=== PATIENT | male | born 1995 | race Caucasian/White ===

== ENCOUNTER 2017-09-13 01:41 | Emergency (ER) | payer BC ==
[~2017-09-13 01:41] MED LIST: CEPH500T7 PO; OXYC-865 PO
--- NOTE | 2017-09-13 01:43 | ER Report ---
History and Physical Time Seen By MD: 01:43 HPI/ROS CHIEF COMPLAINT: emergency [facility] for suicidal ideation HISTORY OF PRESENT ILLNESS: This is a 22 year old male brought to the ER by the [place] [employer] after they found him on the pedestrian [place] [address], wanting to jump off head first. This came to the attention of the police after he was sending messages to his friends and family saying goodbye. He give a history of depression recently and in the past. He has seen several counselors at [facility]. Recently started on Prozac 4 weeks ago, increased to 40mg 2 weeks ago. Not helping. Fleeting thoughts of suicide frequently over the last few weeks, increasing this week, until tonight he decided to end it. He denies previous suicide attempts in the past to me, but friends indicated that he has had previous problems when he was in [place] and parents had to take him back to his home in [place]. He has been drinking tonight. He denies daily drinking, but his friends indicate that it has been daily for the last few weeks. There have been increased stressors based on relationships that his friends tell about, but he denies any recent problems. He denies any drug use. He denies any other recent illnesses, pain or injuries. REVIEW OF SYSTEMS: Constitutional: No fever or chills. Eyes: No vision changes. ENT: No sore throat. No congestion. Cardiovascular: No chest pain. Respiratory: No shortness of breath. Gastrointestinal: No abdominal pain. No nausea or vomiting. No problems with diarrhea or constipation. Genitourinary: No dysuria. No frequency Musculoskeletal: Denies pain. Skin: No rashes. Neurological: No numbness. No weakness. Allergies: Coded Allergies: Sulfa (Sulfonamide Antibiotics) (Verified Allergy, Unknown, RASH, 09/13/17) Home Meds Reported Medications Fluoxetine Hcl (PROZAC) 40 Mg Capsule, 40 MG PO QDAY, CAPSULE 09/13/17 Discontinued Scripts Cephalexin 500 Mg Tab (KEFLEX 500 MG TAB) 500 Mg Tablet, 500 MG PO TID for infection prevention, #20 TAB Prov:HANNAH WRIGHT DO 09/01/16 Oxycodone Hcl/Acetaminophen (PERCOCET 5-325 MG TABLET) 1 Each Tablet, 1 EACH PO Q4-6H Y for PAIN, #15 Prov:HANNAH WRIGHT DO 09/01/16 Reviewed Nurses Notes: Yes Constitutional Vital Sign - Last 24 Hours 09/13/17 09/13/17 01:42 04:06 Temp 97.8 Pulse 85 Resp 18 B/P (MAP) 146/104 138/92 (107) Pulse Ox 92 Physical Exam General Appearance: The patient is alert, has no immediate need for airway protection, and he is intoxicated. Eyes: Pupils equal and round no injection. Reactive to light, extraocular movements are intact. ENT: Normal oral mucosa. Moist mucous membranes. Neck: Neck is supple and non tender. Respiratory: Chest is non tender, lungs are clear to auscultation. Cardiac: regular rate and rhythm Gastrointestinal: Abdomen is soft and non tender, no masses, bowel sounds normal. Musculoskeletal: Extremities have full range of motion. Skin: No rashes DIFFERENTIAL DIAGNOSIS: After history and physical exam differential diagnosis was considered for suicidal ideation, on emergency penitentiary. Medical Decision Making Data Points Result Diagram: 09/13/17 0242 09/13/17 0242 Laboratory Hematology Test 09/13/17 02:00 09/13/17 02:42 Urine Color Yellow Urine Clarity Clear Urine pH 5.0 pH (4.8-9.5) Urine Specific [place] 1.009 Urine Protein Negative mg/dL (NEGATIVE) Urine Glucose (UA) Negative mg/dL (NEGATIVE) Urine Ketones Negative mg/dL (NEGATIVE) Urine Blood Negative (NEGATIVE) Urine Nitrite Negative (NEGATIVE) Urine Bilirubin Negative (NEGATIVE) Urine Urobilinogen Negative mg/dL (0.2-1.9) Urine Leukocyte Esterase Negative (NEGATIVE) Urine RBC None /HPF (0-2/HPF) Urine WBC <1 /HPF (0-5/HPF) Urine Squamous Epithelial Cells Few /LPF (</=FEW) Urine Bacteria Negative /HPF (NONE-FEW) Urine Mucus None /HPF (NONE-FEW) Urine Opiates Screen Negative Urine Barbiturates Screen Negative Ur Tricyclic Antidepressants Screen Negative Urine Phencyclidine Screen Negative Urine Amphetamines Screen Negative Urine Benzodiazepines Screen Negative Urine Cocaine Screen Negative Urine Cannabinoids Screen Negative Red Blood Count 5.05 M/uL (4.00-5.60) Mean Corpuscular Volume 89.6 fL (80.0-96.0) Mean Corpuscular Hemoglobin 31.1 pg (26.0-33.0) Mean Corpuscular Hemoglobin Concent 34.7 g/dL (32.0-36.0) Red Cell Distribution Width 13.3 % (11.5-14.5) Mean Platelet Volume 8.1 fL (7.2-11.1) Neutrophils (%) (Auto) 71.1 % (39.4-72.5) Lymphocytes (%) (Auto) 18.8 % (17.6-49.6) Monocytes (%) (Auto) 7.0 % (4.1-12.4) Eosinophils (%) (Auto) 2.4 % (0.4-6.7) Basophils (%) (Auto) 0.7 % (0.3-1.4) Nucleated RBC Relative Count (auto) 0.0 /100WBC Neutrophils # (Auto) 5.1 K/uL (2.0-7.4) Lymphocytes # (Auto) 1.3 K/uL (1.3-3.6) Monocytes # (Auto) 0.5 K/uL (0.3-1.0) Eosinophils # (Auto) 0.2 K/uL (0.0-0.5) Basophils # (Auto) 0.0 K/uL (0.0-0.1) Nucleated RBC Absolute Count (auto) 0.00 K/uL Sodium Level 143 mmol/L (137-145) Potassium Level 3.7 mmol/L (3.5-5.0) Chloride Level 102 mmol/L (98-107) Carbon Dioxide Level 27 mmol/L (22-30) Blood Urea Nitrogen 13 mg/dl (9-21) Creatinine 0.90 mg/dl (0.66-1.25) Glomerular Filtration Rate Calc > 60.0 Random Glucose 97 mg/dl (75-110) Calcium Level 9.5 mg/dl (8.4-10.2) Magnesium Level 2.1 mg/dl (1.7-2.2) Total Bilirubin 0.3 mg/dl (0.2-1.3) Aspartate Amino Transf (AST/SGOT) 30 U/L (0-35) Alanine Aminotransferase (ALT/SGPT) 37 U/L (0-56) Alkaline Phosphatase 52 U/L (0-126) Total Protein 7.4 gm/dl (6.3-8.2) Albumin 4.5 g/dl (3.5-5.0) Salicylates Level < 10 mg/L Salicylate Last Dose Date unk Acetaminophen Level < 10 ug/ml Serum Alcohol 188 mg/dl Chemistry Test 09/13/17 02:00 09/13/17 02:42 Urine Color Yellow Urine Clarity Clear Urine pH 5.0 pH (4.8-9.5) Urine Specific [place] 1.009 Urine Protein Negative mg/dL (NEGATIVE) Urine Glucose (UA) Negative mg/dL (NEGATIVE) Urine Ketones Negative mg/dL (NEGATIVE) Urine Blood Negative (NEGATIVE) Urine Nitrite Negative (NEGATIVE) Urine Bilirubin Negative (NEGATIVE) Urine Urobilinogen Negative mg/dL (0.2-1.9) Urine Leukocyte Esterase Negative (NEGATIVE) Urine RBC None /HPF (0-2/HPF) Urine WBC <1 /HPF (0-5/HPF) Urine Squamous Epithelial Cells Few /LPF (</=FEW) Urine Bacteria Negative /HPF (NONE-FEW) Urine Mucus None /HPF (NONE-FEW) Urine Opiates Screen Negative Urine Barbiturates Screen Negative Ur Tricyclic Antidepressants Screen Negative Urine Phencyclidine Screen Negative Urine Amphetamines Screen Negative Urine Benzodiazepines Screen Negative Urine Cocaine Screen Negative Urine Cannabinoids Screen Negative White Blood Count 7.1 k/uL (4.5-11.0) Red Blood Count 5.05 M/uL (4.00-5.60) Hemoglobin 15.7 g/dL (14.0-18.0) Hematocrit 45.2 % (42.0-52.0) Mean Corpuscular Volume 89.6 fL (80.0-96.0) Mean Corpuscular Hemoglobin 31.1 pg (26.0-33.0) Mean Corpuscular Hemoglobin Concent 34.7 g/dL (32.0-36.0) Red Cell Distribution Width 13.3 % (11.5-14.5) Platelet Count 216 K/uL (150-450) Mean Platelet Volume 8.1 fL (7.2-11.1) Neutrophils (%) (Auto) 71.1 % (39.4-72.5) Lymphocytes (%) (Auto) 18.8 % (17.6-49.6) Monocytes (%) (Auto) 7.0 % (4.1-12.4) Eosinophils (%) (Auto) 2.4 % (0.4-6.7) Basophils (%) (Auto) 0.7 % (0.3-1.4) Nucleated RBC Relative Count (auto) 0.0 /100WBC Neutrophils # (Auto) 5.1 K/uL (2.0-7.4) Lymphocytes # (Auto) 1.3 K/uL (1.3-3.6) Monocytes # (Auto) 0.5 K/uL (0.3-1.0) Eosinophils # (Auto) 0.2 K/uL (0.0-0.5) Basophils # (Auto) 0.0 K/uL (0.0-0.1) Nucleated RBC Absolute Count (auto) 0.00 K/uL Glomerular Filtration Rate Calc > 60.0 Calcium Level 9.5 mg/dl (8.4-10.2) Magnesium Level 2.1 mg/dl (1.7-2.2) Total Bilirubin 0.3 mg/dl (0.2-1.3) Aspartate Amino Transf (AST/SGOT) 30 U/L (0-35) Alanine Aminotransferase (ALT/SGPT) 37 U/L (0-56) Alkaline Phosphatase 52 U/L (0-126) Total Protein 7.4 gm/dl (6.3-8.2) Albumin 4.5 g/dl (3.5-5.0) Salicylates Level < 10 mg/L Salicylate Last Dose Date unk Acetaminophen Level < 10 ug/ml Serum Alcohol 188 mg/dl Toxicology Test 09/13/17 02:00 09/13/17 02:42 Urine Opiates Screen Negative Urine Barbiturates Screen Negative Ur Tricyclic Antidepressants Screen Negative Urine Phencyclidine Screen Negative Urine Amphetamines Screen Negative Urine Benzodiazepines Screen Negative Urine Cocaine Screen Negative Urine Cannabinoids Screen Negative Salicylates Level < 10 mg/L Salicylate Last Dose Date unk Acetaminophen Level < 10 ug/ml Serum Alcohol 188 mg/dl Urinalysis Test 09/13/17 02:00 Urine Color Yellow Urine Clarity Clear Urine pH 5.0 pH (4.8-9.5) Urine Specific [place] 1.009 Urine Protein Negative mg/dL (NEGATIVE) Urine Glucose (UA) Negative mg/dL (NEGATIVE) Urine Ketones Negative mg/dL (NEGATIVE) Urine Blood Negative (NEGATIVE) Urine Nitrite Negative (NEGATIVE) Urine Bilirubin Negative (NEGATIVE) Urine Urobilinogen Negative mg/dL (0.2-1.9) Urine Leukocyte Esterase Negative (NEGATIVE) Urine RBC None /HPF (0-2/HPF) Urine WBC <1 /HPF (0-5/HPF) Urine Squamous Epithelial Cells Few /LPF (</=FEW) Urine Bacteria Negative /HPF (NONE-FEW) Urine Mucus None /HPF (NONE-FEW) ED Course/Re-evaluation ED Course Labs show an elevated alcohol level of 188, the rest of the labs are negative. Discussed the case with Dr. Borges, accepted to admission to [facility]. Decision to Disposition Date: September 13, 2017 Decision to Disposition Time: 03:53 Depart Departure Latest Vital Signs Vital Signs Date Time Temp Pulse Resp B/P (MAP) Pulse Ox O2 Delivery O2 Flow Rate FiO2 09/13/17 04:06 138/92 (107) 09/13/17 01:42 97.8 85 18 92 Impression: Primary Impression: Suicidal ideation Additional Impressions: Depression Alcohol intoxication Condition: Condition Unchanged Disposition: XFER TO [facility] Problem Qualifiers Additional Impressions: Depression Depression Type: major depressive disorder Major depression recurrence: recurrent Active/Remission status: currently active Major depression episode severity: severe Psychotic features: without psychotic features Qualified Codes: F33.2 - Major depressive disorder, recurrent severe without psychotic features Alcohol intoxication Complication of substance-induced condition: uncomplicated Qualified Codes: F10.920 - Alcohol use, unspecified with intoxication, uncomplicated RUBEN LYNN MD September 13, 2017 01:43
[2017-09-13] MEDS ORDERED: FLUO40CA76 PO (01:56)
--- NOTE | 2017-09-13 02:11 | BHS - Psychiatric Evaluation ---
ER - Title 25 MHE Evaluation Title 25 Evaluation Patient Detained By: Law Enforcement Referral Source: Patient, law enforcement, friends Date Patient Detained: September 13, 2017 Time Patient Detained: :52 Date Jail Expires: September 17, 2017 Time Jail Expires: Legal Status: Police Hold: No Legal Status: Residence: [facility] Resident Assessment Data Provided By: Patient, Law Enforcement HPI/ROS: This is a 22 year old male brought to the ER by the [place] [employer] after they found him on the pedestrian bridge [address], wanting to jump off head first. This came to the attention of the police after he was sending messages to his friends and family saying goodbye. He give a history of depression recently and in the past. He has seen several counselors at [facility]. Recently started on Prozac 4 weeks ago, increased to 40mg 2 weeks ago. Not helping. Fleeting thoughts of suicide frequently over the last few weeks, increasing this week, until tonight he decided to end it. He denies previous suicide attempts in the past to me, but friends indicated that he has had previous problems when he was in [place] and parents had to take him back to his home in [place]. He has been drinking tonight. He denies daily drinking, but his friends indicate that it has been daily for the last few weeks. There have been increased stressors based on relationships that his friends tell about, but he denies any recent problems. He denies any drug use. He denies any other recent illnesses, pain or injuries. Admit due to SI or Attempt: Yes Suicide Plan: Has Plan with Access Current Suicide Plan was going to jump head first off of a bridge. Alcohol or Drugs Involved: Yes Current Intoxication Info: Alcohol use tonight Is Patient Info Reliable: Yes Current Home Psych Meds: Prozac 40mg daily Mental Status Exam General Appearance: Well Groomed, Good Eye Contact, Cooperative, Other ( Sitting in exam bed in handcuffs) Speech: Spontaneous, Normal Rate, Normal Rhythm, Normal Volume, Normal Tone Mood: Dysthmic/Depressed Affect: Calm, Neutral, Anxious Thought Process: Organized, Logical Thought Content: Suicidal Ideation, No Homicidal Ideation Sensorium: Other (intoxicated) Cognition: Alert & Oriented-Person, Alert & Oriented-Place, Alert & Oriented- Time, [id number] Memory: Other (normal) Insight Judgment: Fair Current Risk & History Current Dangerous Risk Assessm: Current Suicide Ideation Past Dangerous Risk Assessm: Suicide Ideation-last 6mo Previous Suicide Attempt: No Previous Attempt Previous Psychiatric Illness: Yes Previous Diagnosis/Treatment: Depression. Sees a psychiatrist at [facility]. Started on Prozac about 4 weeks ago. Previous Psychiatric Treatment: Yes Risk Assessment & Disposition Evaluated Risk Assessment: High risk based on history and actions tonight. Impression: Primary Impression: Depression Additional Impressions: Suicidal ideation Alcohol intoxication Meets Mental Illness Req.: Yes Meets Dangerousness Req.: Yes Emergency Jail to be: Upheld Date of Decision: September 13, 2017 Time of Decision: 02:10 Patient is Medically Stable at: Yes Disposition: [facility] Problem Qualifiers Primary Impression: Depression Depression Type: major depressive disorder Major depression recurrence: recurrent Active/Remission status: currently active Major depression episode severity: severe Psychotic features: without psychotic features Qualified Codes: F33.2 - Major depressive disorder, recurrent severe without psychotic features Additional Impressions: Alcohol intoxication Complication of substance-induced condition: uncomplicated Qualified Codes: F10.920 - Alcohol use, unspecified with intoxication, uncomplicated RUBEN LYNN MD September 13, 2017 02:11
[2017-09-13 02:48] LABS: PLATELET COUNT, AUTOMATED 216 K/uL (150-450)
[2017-09-13 04:06] VITALS: BP 138/92
== END 2017-09-13 04:12 ==
LOC: ER 01:55
DX: F33.2 Major depressive disorder, recurrent severe without psychotic features (principal); F10.920 Alcohol use, unspecified with intoxication, uncomplicated; Y90.6 Blood alcohol level of 120-199 mg/100 ml
CPT/HCPCS: 36415; 80305; 80320; 80329; 81001; 82040; 82247; 82310; 82374; 82435; 82565; 82947; 83735; 84075; 84132; 84155; 84295; 84443; 84450; 84460; 84520; 85025; 99285

== ENCOUNTER 2017-09-13 03:54 | Inpatient (IN) | payer BC ==
[~2017-09-13] VITALS: Ht 172.7 cm; Wt 68.0 kg
[~2017-09-13 03:54] MED LIST changes: +FLUO40CA76 PO
[2017-09-13] MEDS ORDERED: ACETAMINOPHEN 325 MG TAB PO PRN (04:25)
[2017-09-13] MEDS ORDERED: MAG HYD/AL HYD/SIMETH 30ML UDC PO PRN (04:25)
[2017-09-13 04:37] VITALS: BP 137/84
[2017-09-13] MEDS: MULTIVITAMINS TAB PO SCH (08:20)
[2017-09-13] MEDS: OMEGA-3 500 MG CAP PO SCH (09:53)
[2017-09-13] MEDS: FLUoxetine HCL 20 MG CAP PO SCH (09:53)
[2017-09-13 15:00] VITALS: BP 139/76
--- NOTE | 2017-09-13 15:57 | HISTORY AND PHYSICAL ---
DATE OF ADMISSION: September 13, 2017 Patient was seen at approximately 0900 hours on the a.m. of September 13, 2017. PRESENTING PROBLEM/CHIEF COMPLAINT "I have been feeling depressed and anxious. HISTORY OF PRESENT ILLNESS This is an overall cooperative 22-year-old male who was brought to the emergency room under an emergency detainment initiated by police after patient was found by a new foot bridge in [place] contemplating suicide by jumping. Patient apparently was "tackled off a bridge" by police officers. Patient admitted in a state of moderate alcohol intoxication, but overall cooperative. During initial interview patient reports he has been depressed and anxious nearly his entire life since around age 5. Patient reports that he had a big bout of depression around age 17. Patient stating that sometimes he feels like he gets tired of struggling with depressive symptoms and patient reports "I am tired of life." Patient reports his baseline is "miserable, even when I do everything that's right." Patient does report some seasonal affective-type symptomatology and also depression around holidays. Patient seems very well versed in psychiatric language. When asked if patient had any specific stressors, he does report that he has a girlfriend and he had an about one month ago and they are no longer a couple. When asked about depressive symptoms patient reports his appetite has been down, at times not eating enough , and has lost some weight due to recent medical illness. He reports his energy has been down. His concentration remains okay, especially at work where patient reports he is his happiest. Patient reports a decreased interest in activities he used to enjoy. Again patient experiencing suicidal thoughts and his mood has been down. Patient reports his sleep can be problematic at times, but recently seems to have been better. Patient reports since starting Prozac a month or two ago, patient reports he wakes up at night. Patient denies any symptoms of ramila, psychosis. Patient reports occasional panic-like symptoms that do not seem to reach the magnitude of panic disorder. Patient reports no PTSD symptoms, although he does report his father unexpectedly when he was 5 years old. Patient denies phobias, anorexia or bulimia. Patient reports feeling organized at times, but falls short of OCD. Patient has never engaged in self-harm. Patient reports tension in his chest as a somatic symptom of stress. MENTAL HEALTH HISTORY Patient has never been admitted to a psychiatric [facility] before. He has followed up with [facility] and continues to do so. He is currently at 40 mg of Prozac and is seen a therapist since February of 2018. Patient reports suicide attempt involving the bridge prior to admission, but other than that reports no suicide attempt. FAMILY PSYCHIATRIC HISTORY Patient reports no alcohol or drug abuse in the family. He reports that his dad was very "low on the emotional scale" and not the most cheerful person. No suicides are believed to have existed in the genetic family history. PAST MEDICAL HISTORY Patient has had tonsillectomy in the past. He has recently suffered from a "stomach bug after return from a trip to [facility] Patient had lost some weight secondary to diarrhea and vomiting. Patient feels that s has recovered. He is allergic to SULFA MEDICATIONS. SOCIAL HISTORY Patient was born in [place] and moved in [place], [place], when he was 2 years old and grew up there. His parents were at the time of his . Father when he was 5. Patient reports an older sister around age 28. Patient reports a good childhood growing up. He is a high school graduate and college graduate in physiology. Patient has never served in the , never , considers himself heterosexual, has no children. 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 Patient reports he has a good relationship with roommates and plenty of friends. LEGAL HISTORY Denies any legal history. SUBSTANCE ABUSE HISTORY Denies any daily alcohol use and states he does use occasional marijuana. PHYSICAL EXAM GENERAL: Please see emergency room notes. Notable for a mildly agitated 22- year-old male, but overall cooperative in nature. Patient was intoxicated at the time of admission. In no acute medical distress. VITAL SIGNS: At the time of admission, temperature 97.8, pulse 85, respiratory rate 18, blood pressure 146/104, pulse oximetry 92 on room air. LABORATORY DATA CBC unremarkable. CMP unremarkable. TSH noted to be elevated at 9.16. Urinalysis unremarkable. Toxicology screen negative with a serum alcohol level of 188 upon admission. MENTAL STATUS EXAMINATION GENERAL APPEARANCE, BEHAVIOR AND ATTITUDE: This is a 22-year-old male, well groomed, medium build. Patient interacting well with this provider and treatment team staff, making fairly good eye contact. No bizarre mannerisms or tics. Patient very calm throughout most of the interview, becoming mildly agitated, but quickly redirected when patient found out he would not be discharging from the hospital today. SPEECH: Within normal limits, regular rate, rhythm volume and tone. MOOD: Described as depressed. AFFECT: Constricted at times and mood congruent. THOUGHT PROCESSES: Goal directed. Patient wanting to go home. Logical. No loose associations or flight of ideas. THOUGHT CONTENT: Free of auditory or visual hallucinations, ideas of reference , thought broadcastings, delusions, obsessions, compulsions. Patient admitting suicidal thoughts. Denying homicidal ideation. SENSORIUM: Clear. COGNITION: Alert and oriented to person, place, time and situation. MEMORY: Immediate, recent and remote estimated intact. INTELLIGENCE: Average to above based on interview and historical data in this what appears to be an overall accurate historian. INSIGHT AND JUDGMENT: Limited due to current degree of depression combined with alcohol intoxication. ASSESSMENT This is an overall cooperative, polite 22-year-old male. Patient redirectable. Patient likely suffering from major depression and anxiety disorder unspecified combined with alcohol intoxication. Will continue to evaluate this patient who is on an emergency detainment and may start meds to address anxiety and depression. DIAGNOSES PER DSM-V Major depression, recurrent, severe without psychotic features. Anxiety disorder unspecified. Alcohol intoxication. PLAN 1. Admit to the unit. 2. Necessary precautions to be implemented. 3. Patient will participate in individual and group therapy. 4. Medications to be administered, titrated accordingly. 5. Collateral information to be obtained as necessary. 6. Estimated length of stay three to five days. MTDD
[2017-09-13] MEDS: MIRTAZAPINE 15 MG TAB PO SCH (21:01)
[2017-09-14 03:43] VITALS: BP 138/89
[2017-09-14] MEDS: FLUoxetine HCL 20 MG CAP PO SCH (08:29)
[2017-09-14] MEDS: OMEGA-3 500 MG CAP PO SCH (08:29)
[2017-09-14] MEDS: MULTIVITAMINS TAB PO SCH (08:29)
[2017-09-14 12:25] VITALS: BP 118/78
--- NOTE | 2017-09-14 13:32 | BHS Progress Note ---
S - Subjective Progress Notes Subjective Patient indicating some improvement in mood, and cooperative on the unit, with staff and other patients. Patient interacting well with his sister and mother on the unit today, and has shown a positive response from mirtazapine for anxious /depressed symptoms. Patient is now taking an active role in his treatment, and will likely be able to discharge on Sunday with detainment being dropped, if further improvement and with continued family support. Will continue treatment today, and will lower Prozac to 20mg QAM, as patient may suspect a negative reaction concerning increased anxiety on prozac. Suicidal Ideation: Resolving Homicidal Ideation: None [facility] - Objective Physical Exam Vital Signs Vital Signs Date Time Temp Pulse Resp B/P (MAP) Pulse Ox O2 Delivery O2 Flow Rate FiO2 09/14/17 03:43 99.8 79 138/89 (105) 95 Room Air 09/13/17 15:00 18 Hematology Test 09/13/17 02:42 Vitamin D 25-Hydroxy 47 ng/ml (30-100) Free Thyroxine 1.16 ng/dl (0.78-2.19) Free Triiodothyronine 3.2 pg/mL (2.4-4.2) Chemistry Test 09/13/17 02:42 Vitamin D 25-Hydroxy 47 ng/ml (30-100) Free Thyroxine 1.16 ng/dl (0.78-2.19) Free Triiodothyronine 3.2 pg/mL (2.4-4.2) Muscle Strength and Tone: WNL Gait and Station: Steady [facility] Medications Reviewed: Side Effects, Benefits of Medication, Risks Allergies Reviewed: Yes Mental Status Exam General Appearance: Casual, Well Groomed, Good Eye Contact, Cooperative, Polite , Good Interaction, No Tearful, No Psychomotor Agitation, No Psychomotor Retardation, No Bizarre Mannerisms, No Tics Speech: Clear, Spontaneous, Normal Rate, Normal Rhythm, Normal Volume, Normal Tone Mood: Dysthmic/Depressed (improving) Affect: Calm, No Tearful, No Anxious, No Agitated Thought Process: Organized, Logical, Goal Directed, No Loose Associations, No Flight of Ideas Thought Content: Suicidal Ideation (resolving), No Homicidal Ideation, No Delusions, No Auditory Halllucinations, No Visual Hallucinations, No Thought Broadcasting, No Ideas of Reference, No Obsessions, No Compulsions Sensorium: Clear Cognition: Alert & Oriented-Person, Alert & Oriented-Place, Alert & Oriented- Time, Qidcx-Lnjthiqx-Gifyblasi Memory: Immediate, Recent, Remote Intelligence: Above Average Insight Judgment: Fair (improved in absence of alcohol use. ) [facility] Assessment and Plan [id number] Encounter Date: September 14, 2017 [id number] Encounter Time: 08:40 [facility] Plan: Necessary Precautions, Individual/Group Therapy, Admin/Titrate Meds, Educate Patient Tobacco Medications: Not Appropriate Condition Multpiple Antipsychotics Used: No Problems: (1) Major depression, recurrent Status: Chronic (2) Anxiety disorder, unspecified (3) Alcohol intoxication Status: Resolved Condition 1. continue treatment. 2. potential discharge to close observation with family tomorrow. 3. decrease prozac to 20mg. 4. evaluate thyroid function. Problem Qualifiers (1) Major depression, recurrent: Major depression episode severity: moderate (2) Anxiety disorder, unspecified: Anxiety disorder type: unspecified anxiety disorder Qualified Codes: F41.9 - Anxiety disorder, unspecified OLGA CHILDS MD September 14, 2017 13:32
[2017-09-14 16:50] VITALS: BP 108/78
[2017-09-14] MEDS: MIRTAZAPINE 15 MG TAB PO SCH (21:06)
[2017-09-15 01:23] VITALS: BP 144/78
[2017-09-15] MEDS: OMEGA-3 500 MG CAP PO SCH (08:14)
[2017-09-15] MEDS: MULTIVITAMINS TAB PO SCH (08:14)
[2017-09-15] MEDS ORDERED: FLUoxetine HCL 20 MG CAP PO SCH (09:00)
--- NOTE | 2017-09-15 09:21 | BHS Progress Note ---
[facility] - Subjective Progress Notes Subjective "It was a perfect storm, I was drinking and had lots of stress and there was a bridge. I definitely need to work on my drinking. I need to take more ownership of my actions and take steps to mitigate my weaknesses." Engaged with [facility] outpatient services since February, just switched therapists Anxiety 3 Depression 4 (1-10 scale, 10 worst) Denies urge for harm to self or others Actively engaged with treatment during hospitalization Suicidal Ideation: None Homicidal Ideation: None [facility] - Objective Physical Exam Vital Signs Vital Signs Date Time Temp Pulse Resp B/P (MAP) Pulse Ox O2 Delivery O2 Flow Rate FiO2 09/15/17 01:23 98.2 64 144/78 (100) 98 Room Air 09/14/17 16:50 16 Allergies Coded Allergies Sulfa (Sulfonamide Antibiotics) (Verified Allergy, Unknown, RASH, 09/13/17) Muscle Strength and Tone: WNL Gait and Station: Steady [facility] Medications Reviewed: Side Effects, Benefits of Medication, Risks Allergies Reviewed: Yes Mental Status Exam General Appearance: Casual, Well Groomed, Good Eye Contact, Cooperative, Polite , Good Interaction, No Tearful, No Psychomotor Agitation, No Psychomotor Retardation, No Bizarre Mannerisms, No Tics Speech: Clear, Spontaneous, Normal Rate, Normal Rhythm, Normal Volume, Normal Tone Mood: Dysthmic/Depressed (improving) Affect: Calm, No Tearful, No Anxious, No Agitated Thought Process: Organized, Logical, Goal Directed, No Loose Associations, No Flight of Ideas Thought Content: Suicidal Ideation (resolving), No Homicidal Ideation, No Delusions, No Auditory Halllucinations, No Visual Hallucinations, No Thought Broadcasting, No Ideas of Reference, No Obsessions, No Compulsions Sensorium: Clear Cognition: Alert & Oriented-Person, Alert & Oriented-Place, Alert & Oriented- Time, Klodh-Usdgcxkm-Rjxwgogok Memory: Immediate, Recent, Remote Intelligence: Above Average Insight Judgment: Fair (improved in absence of alcohol use. ) Lab Vital Signs Date Time Temp Pulse Resp B/P (MAP) Pulse Ox O2 Delivery O2 Flow Rate FiO2 09/15/17 01:23 98.2 64 144/78 (100) 98 Room Air 09/14/17 16:50 16 Allergies Coded Allergies Sulfa (Sulfonamide Antibiotics) (Verified Allergy, Unknown, RASH, 09/13/17) [facility] Assessment and Plan [id number] Encounter Date: September 15, 2017 Rxeh-un-Iibr Encounter Time: 09:20 [facility] Plan: Necessary Precautions, Individual/Group Therapy, Admin/Titrate Meds, Educate Patient Tobacco Medications: Not Appropriate Condition Multpiple Antipsychotics Used: No Problems: (1) Anxiety disorder, unspecified Status: Chronic (2) Major depression, recurrent Status: Chronic (3) Alcohol intoxication Status: Resolved Condition Discharge today Please refer to discharge summary Encouraged to follow up w/outpatient medication provider and therapist To abstain from etoh/illicit substances Crisis line # provided, encourage use for worsening symptoms Return to ER for suicidal/homicidal ideation Agrees with above discharge plan Problem Qualifiers (1) Anxiety disorder, unspecified: Anxiety disorder type: unspecified anxiety disorder Qualified Codes: F41.9 - Anxiety disorder, unspecified (2) Major depression, recurrent: Major depression episode severity: moderate PHILLIP HERCULES NP September 15, 2017 09:21
[2017-09-15] MEDS ORDERED: MIRT-27 PO (09:27)
[2017-09-15] MEDS ORDERED: OMEG-11 PO (09:57)
[2017-09-15] MEDS ORDERED: MULT-859 PO (09:57)
--- NOTE | 2017-09-15 15:44 | DISCHARGE SUMMARY ---
FINAL DIAGNOSES PER DSM-V Major depression, recurrent, severe without psychotic features. Unspecified anxiety disorder. Alcohol intoxication upon admission REASON FOR ADMISSION/BRIEF HISTORY This is a 22-year-old single male who was brought in under emergency snf initiated by police after patient found on the foot bridge contemplating suicide by jumping. Patient was tackled off the bridge by police officers. He admitted to a moderate state of alcohol intoxication, but overall cooperative. Patient reports a long-standing history of anxiety and depression starting around age 5. He reports an overall dysthymic mood, increased around holidays. Patient reports current stressors as having a girlfriend who had an about a month ago, and also engaged with a relationship at the present time he is trying to break off, although having difficulty with this. Patient reports decreased appetite, low energy, decreased interest in activities and ongoing suicidal thoughts. He also reported sleep as problematic at times, having recently been started on Prozac a month or two ago with increased depression with increased dose to 40 mg. He denies history of ramila or psychosis. Patient was admitted to the Behavioral Health Unit for further evaluation and treatment. EXAMINATION GENERAL: Please see emergency room notes for physical exam. VITAL SIGNS: At the time of admission include temperature of 98.6, pulse of 71 , respiratory rate 16, blood pressure 137/84, pulse oximetry 93% on room air. Vital signs at the time of discharge include temperature of 98.2, pulse of 64, blood pressure 144/77, pulse oximetry 98% on room air. LABORATORY DATA CBC within normal limits. Chemistry panel within normal limits. Thyroid stimulating hormone 9.16. Urine screen within normal limits. Toxicology salicylates/acetaminophen levels less than 10, serum alcohol level 188. Urine screen negative for opiates, barbiturates, tricyclics, phencyclidine, amphetamines, benzodiazepines, cocaine and cannabinoids. MENTAL STATUS EXAMINATION AT THE TIME OF DISCHARGE GENERAL APPEARANCE, BEHAVIOR AND ATTITUDE: This is a calm, cooperative interactive male. At the time of discharge interview, no periods of tearfulness , no bizarre mannerisms or tics. SPEECH: Regular rate, rhythm volume and tone. MOOD: Mostly euthymic. AFFECT: Minimally constricted, mood congruent. THOUGHT PROCESSES: Logical, goal directed. No loose associations or flight of ideas. THOUGHT CONTENT: Free of auditory or visual hallucinations, ideas of reference , thought broadcastings, delusions, obsessions, compulsions. Patient denying suicidal or homicidal ideation. SENSORIUM: Clear. COGNITION: Alert and oriented to person, place, time and situation. MEMORY: Immediate, recent and remote estimated intact. INTELLIGENCE: Average based on interview. INSIGHT AND JUDGMENT: Considered intact as patient agreeable with ongoing evaluation by medication management providers and individual therapist through [facility]. RESULTS OF TESTING PSYCHOLOGICAL TESTING: None completed. CONSULTATIONS: None. TREATMENT Patient participated in individual and group therapy. MEDICATION MANAGEMENT 1. Prozac was decreased to 20 mg p.o. 2. Addition of mirtazapine 50 mg p.o. at bedtime, targeting depression and anxiety. HOSPITAL COURSE Patient was an active participant in his treatment. He was agreeable to ongoing medication management, is interested in some genetics testing and agreeable with followup by outpatient providers as scheduled. CONDITION OF PATIENT ON DISCHARGE He is stable and considered a minimal risk to himself or others. DISPOSITION This patient is discharged to home. He is to abstain from alcohol and all illicit substances. Patient is encouraged to follow up with patient medication management provider as well as their individual therapist. Patient is given the crisis line and encouraged to use should symptoms worsen. DISCHARGE MEDICATIONS 1. Fish oil 1000 mg one p.o. daily. 2. Fluoxetine 20 mg one p.o. daily in a.m. 3. Mirtazapine 50 mg one p.o. at bedtime. 4. Multivitamin one p.o. daily. Patient is encouraged to take medication only as prescribed. Patient is to return to the emergency room for worsening symptoms, suicidal or homicidal ideation. Patient is competent and agreeable with the above discharge plan. SHANIKA
== END 2017-09-15 13:11 | disposition home or self-care (01) | DRG 885 ==
LOC: BHS 03:54
PROVIDERS: ADMIT Psychiatry & Neurology Psychiatry; ATTEND Psychiatry & Neurology Psychiatry
DX: F33.3 Major depressive disorder, recurrent, severe with psychotic symptoms (principal); R45.851 Suicidal ideations; F41.9 Anxiety disorder, unspecified; F10.920 Alcohol use, unspecified with intoxication, uncomplicated; Y90.6 Blood alcohol level of 120-199 mg/100 ml; Z88.2 Allergy status to sulfonamides
CPT/HCPCS: 82306; 84439; 84481; 90853

== ENCOUNTER 2018-05-07 03:34 | Emergency (ER) | payer BC, OTHER ==
[~2018-05-07 03:34] MED LIST changes: +MIRT-27 PO; +MULT-859 PO; +OMEG-11 PO
--- NOTE | 2018-05-07 03:44 | ER Report ---
History and Physical Time Seen By MD: 03:44 Hx. of Stated Complaint: sudden onset of nause and vomiting around 11pm. got worse around 1a. vomited maybe 3 times, lots of dry heaving and abdominal pain HPI/ROS CHIEF COMPLAINT: vomiting, abdominal pain and diarrhea HISTORY OF PRESENT ILLNESS: This is a 23 year old male. He has been having about 24 hours of pain in the abdomen, diffuse, crampy quality. Associated with vo miting and diarrhea. Cannot keep food or fluids down. Feels very lightheaded. Pain waxes and wanes, nothing makes it worse or better. Nausea and vomiting worse when pain worsens. No fevers noted, but some chills. Mild shortness of breath, no cough. No chest pain. No problems with urination noted Allergies: Coded Allergies: Sulfa (Sulfonamide Antibiotics) (Verified Allergy, Unknown, RASH, 05/07/18) Home Meds Active Scripts Ondansetron 4 Mg Odt (ONDANSETRON 4 MG ODT) 4 Mg Tab.rapdis, 4 MG PO Q6H PRN for NAUSEA/VOMITING, #10 TAB 0 Refills Prov:RUBEN LYNN MD 05/07/18 Hydrocodone Bit/Acetaminophen (HYDROCODON-ACETAMINOPHEN 5-325) 1 Each Tablet, 1 EACH PO Q4H PRN for PAIN, #8 TAB 0 Refills Prov:RUBEN LYNN MD 05/07/18 Ciprofloxacin 500 Mg Tab (CIPROFLOXACIN 500 MG TAB) 500 Mg Tablet, 500 MG PO BID, #20 TAB 0 Refills Prov:RUBEN LYNN MD 05/07/18 Metronidazole (METRONIDAZOLE) 500 Mg Tablet, 500 MG PO TID, #30 TAB 0 Refills Prov:RUBEN LYNN MD 05/07/18 Reported Medications Multivits,Ca,Minerals/Iron/Fa (THERA-M TABLET) 1 Each Tablet, 1 EACH PO DAILY 09/15/17 Aubrey-3 Fatty Acids/Fish Oil (FISH OIL 1,000 MG CAPSULE) 1 Each Capsule, 1 EACH PO DAILY, CAPSULE 09/15/17 Mirtazapine (MIRTAZAPINE) 15 Mg Tab.rapdis, 15 MG PO QHS 09/15/17 Fluoxetine Hcl (PROZAC) 40 Mg Capsule, 20 MG PO QDAY, CAPSULE 09/13/17 Reviewed Nurses Notes: Yes Hx Smoking: No Smoking Status: Never Smoker Exposure to Second Hand Smoke?: No Hx Substance Use Disorder: No Hx Alcohol Use: Yes Constitutional Vital Sign - Last 24 Hours 05/07/18 05/07/18 05/07/18 05/07/18 03:39 03:39 03:49 04:00 Temp 98.5 Pulse 91 92 Resp 20 B/P (MAP) 138/74 (95) 138/74 131/63 (85) Pulse Ox 100 97 O2 Delivery Room Air 05/07/18 05/07/18 05/07/18 05/07/18 04:04 04:29 04:34 05:00 Pulse 88 85 B/P (MAP) 125/75 (92) 117/70 (86) Pulse Ox 100 97 05/07/18 05/07/18 05/07/18 05:04 05:15 05:19 Pulse 92 84 Pulse Ox 90 99 O2 Flow Rate 2.0 Intake and Output 05/06/18 05/06/18 05/07/18 15:00 23:00 07:00 Intake Total 1000 ml Balance 1000 ml Physical Exam General Appearance: The patient is alert. No acute distress. Eyes: Pupils are equal, round. No pallor, injection or icterus. ENT: Mucous membranes are moist. Normal oral mucosa. Posterior oropharynx is normal. Neck: Supple and non tender. Respiratory: Lungs are clear to auscultation. Cardiovascular: Regular rate and rhythm. No murmurs, gallops or rubs. Gastrointestinal: Abdomen is soft, diffuse discomfort, somewhat worse periumbilical and upper. Nondistended. Guarding, but no rebound. Hyperactive bowel sounds. No costovertebral angle tenderness with percussion. Neurological: Alert and oriented x3. No focal neurologic deficits Skin: Warm and dry. DIFFERENTIAL DIAGNOSIS: After history and physical exam, differential diagnosis was considered for abdominal pain including but not limited to gastroenteritis, colitis, viral enteritis and urinary tract infection. Medical Decision Making Data Points Result Diagram: 05/07/1835005/07/18350 Laboratory Hematology Test 05/07/18 03:51 05/07/18 04:55 Red Blood Count 5.50 M/uL (4.00-5.60) Mean Corpuscular Volume 91.1 fL (80.0-96.0) Mean Corpuscular Hemoglobin 31.3 pg (26.0-33.0) Mean Corpuscular Hemoglobin Concent 34.4 g/dL (32.0-36.0) Red Cell Distribution Width 12.9 % (11.5-14.5) Mean Platelet Volume 8.4 fL (7.2-11.1) Neutrophils (%) (Auto) 88.7 % (39.4-72.5) Lymphocytes (%) (Auto) 3.9 % (17.6-49.6) Monocytes (%) (Auto) 6.5 % (4.1-12.4) Eosinophils (%) (Auto) 0.6 % (0.4-6.7) Basophils (%) (Auto) 0.3 % (0.3-1.4) Nucleated RBC Relative Count (auto) 0.1 /100WBC Neutrophils # (Auto) 17.7 K/uL (2.0-7.4) Lymphocytes # (Auto) 0.8 K/uL (1.3-3.6) Monocytes # (Auto) 1.3 K/uL (0.3-1.0) Eosinophils # (Auto) 0.1 K/uL (0.0-0.5) Basophils # (Auto) 0.1 K/uL (0.0-0.1) Nucleated RBC Absolute Count (auto) 0.02 K/uL Sodium Level 138 mmol/L (137-145) Potassium Level 4.1 mmol/L (3.5-5.0) Chloride Level 103 mmol/L (98-107) Carbon Dioxide Level 21 mmol/L (22-30) Blood Urea Nitrogen 19 mg/dl (9-21) Creatinine 1.20 mg/dl (0.66-1.25) Glomerular Filtration Rate Calc > 60.0 Random Glucose 174 mg/dl (75-110) Calcium Level 10.4 mg/dl (8.4-10.2) Total Bilirubin 1.0 mg/dl (0.2-1.3) Aspartate Amino Transf (AST/SGOT) 33 U/L (0-35) Alanine Aminotransferase (ALT/SGPT) 35 U/L (0-56) Alkaline Phosphatase 69 U/L (0-126) Total Protein 7.6 g/dl (6.3-8.2) Albumin 5.0 g/dl (3.5-5.0) Amylase Level 51 U/L (0-110) Lipase 73 U/L (23-300) Urine Color Yellow Urine Clarity Clear Urine pH 6.0 pH (4.8-9.5) Urine Specific [place] 1.026 Urine Protein 30 mg/dL (NEGATIVE) Urine Glucose (UA) Negative mg/dL (NEGATIVE) Urine Ketones 80 mg/dL (NEGATIVE) Urine Blood Negative (NEGATIVE) Urine Nitrite Negative (NEGATIVE) Urine Bilirubin Negative (NEGATIVE) Urine Urobilinogen Negative mg/dL (0.2-1.9) Urine Leukocyte Esterase Negative (NEGATIVE) Urine RBC <1 /HPF (0-2/HPF) Urine WBC 1 /HPF (0-5/HPF) Urine Squamous Epithelial Cells None /LPF (</=FEW) Urine Bacteria Negative /HPF (NONE-FEW) Urine Mucus Few /HPF (NONE-FEW) Chemistry Test 05/07/18 03:51 05/07/18 04:55 White Blood Count 19.9 k/uL (4.5-11.0) Red Blood Count 5.50 M/uL (4.00-5.60) Hemoglobin 17.2 g/dL (14.0-18.0) Hematocrit 50.1 % (42.0-52.0) Mean Corpuscular Volume 91.1 fL (80.0-96.0) Mean Corpuscular Hemoglobin 31.3 pg (26.0-33.0) Mean Corpuscular Hemoglobin Concent 34.4 g/dL (32.0-36.0) Red Cell Distribution Width 12.9 % (11.5-14.5) Platelet Count 310 K/uL (150-450) Mean Platelet Volume 8.4 fL (7.2-11.1) Neutrophils (%) (Auto) 88.7 % (39.4-72.5) Lymphocytes (%) (Auto) 3.9 % (17.6-49.6) Monocytes (%) (Auto) 6.5 % (4.1-12.4) Eosinophils (%) (Auto) 0.6 % (0.4-6.7) Basophils (%) (Auto) 0.3 % (0.3-1.4) Nucleated RBC Relative Count (auto) 0.1 /100WBC Neutrophils # (Auto) 17.7 K/uL (2.0-7.4) Lymphocytes # (Auto) 0.8 K/uL (1.3-3.6) Monocytes # (Auto) 1.3 K/uL (0.3-1.0) Eosinophils # (Auto) 0.1 K/uL (0.0-0.5) Basophils # (Auto) 0.1 K/uL (0.0-0.1) Nucleated RBC Absolute Count (auto) 0.02 K/uL Glomerular Filtration Rate Calc > 60.0 Calcium Level 10.4 mg/dl (8.4-10.2) Total Bilirubin 1.0 mg/dl (0.2-1.3) Aspartate Amino Transf (AST/SGOT) 33 U/L (0-35) Alanine Aminotransferase (ALT/SGPT) 35 U/L (0-56) Alkaline Phosphatase 69 U/L (0-126) Total Protein 7.6 g/dl (6.3-8.2) Albumin 5.0 g/dl (3.5-5.0) Amylase Level 51 U/L (0-110) Lipase 73 U/L (23-300) Urine Color Yellow Urine Clarity Clear Urine pH 6.0 pH (4.8-9.5) Urine Specific [place] 1.026 Urine Protein 30 mg/dL (NEGATIVE) Urine Glucose (UA) Negative mg/dL (NEGATIVE) Urine Ketones 80 mg/dL (NEGATIVE) Urine Blood Negative (NEGATIVE) Urine Nitrite Negative (NEGATIVE) Urine Bilirubin Negative (NEGATIVE) Urine Urobilinogen Negative mg/dL (0.2-1.9) Urine Leukocyte Esterase Negative (NEGATIVE) Urine RBC <1 /HPF (0-2/HPF) Urine WBC 1 /HPF (0-5/HPF) Urine Squamous Epithelial Cells None /LPF (</=FEW) Urine Bacteria Negative /HPF (NONE-FEW) Urine Mucus Few /HPF (NONE-FEW) Urinalysis Test 05/07/18 04:55 Urine Color Yellow Urine Clarity Clear Urine pH 6.0 pH (4.8-9.5) Urine Specific [place] 1.026 Urine Protein 30 mg/dL (NEGATIVE) Urine Glucose (UA) Negative mg/dL (NEGATIVE) Urine Ketones 80 mg/dL (NEGATIVE) Urine Blood Negative (NEGATIVE) Urine Nitrite Negative (NEGATIVE) Urine Bilirubin Negative (NEGATIVE) Urine Urobilinogen Negative mg/dL (0.2-1.9) Urine Leukocyte Esterase Negative (NEGATIVE) Urine RBC <1 /HPF (0-2/HPF) Urine WBC 1 /HPF (0-5/HPF) Urine Squamous Epithelial Cells None /LPF (</=FEW) Urine Bacteria Negative /HPF (NONE-FEW) Urine Mucus Few /HPF (NONE-FEW) EKG/Imaging Imaging ACUTE ABDOMEN SERIES 3 VIEW HISTORY: Vomiting and diarrhea since 0030 hours. Short of breath. COMPARISON: None. TECHNIQUE: PA upright view of the chest, AP supine and AP upright views of the abdomen. Chest: The lungs are clear. No pneumothorax or pleural effusion. The cardiac and mediastinal silhouettes are within normal limits. Bones and soft tissues are unremarkable. Abdomen: The distribution of bowel gas is normal, with bowel in all four quadrants as well as centrally. No free air. No dilated loops of bowel. No acute osseous abnormality. There is rightward curvature of the lumbar spine. IMPRESSION: 1. No acute cardiopulmonary process. 2. Unremarkable bowel gas pattern without obstruction. Report Dictated By: Christa Staples at 05/07/2018 4:42 AM COMPUTED TOMOGRAPHY ABDOMEN AND PELVIS WITH INTRAVENOUS CONTRAST DATE OF EXAM: 05/07/2018 4:51 AM INDICATION: Abdominal pain, nausea/vomiting. COMPARISON: Same-day abdomen series radiographs. TECHNIQUE: Contrast enhanced abdomen and pelvis CT performed during the injection of 75 ml of Isovue 370. Sagittal and coronal reconstructions were performed. One of the following dose optimization techniques was utilized in the performance of this exam: Automated exposure control; adjustment of the mA and/or kV according to the patient's size; or use of an iterative reconstruction technique. Specific details can be referenced in the facility's radiology CT exam operational policy. FINDINGS: Lung bases: Clear. Liver and hepatic vasculature: Normal. Gallbladder and bile ducts: Normal. Spleen: Normal. Pancreas: Normal. Adrenals: Normal. Kidneys, ureters and bladder: Normal. Bladder is decompressed. Retroperitoneum and aorta: Aorta is normal. Retroaortic left renal vein. No adenopathy. GI tract, mesentery and peritoneum: Fluid-filled loops of small bowel in the proximal colon may have slightly increased wall enhancement and thickening. No evidence of obstruction. No pneumatosis, pneumoperitoneum or significant free fluid. The appendix is nonacute. Prostate and seminal vesicles: Normal. Bones and soft tissues: No acute abnormality or suspicious lesion. Bone island in the left ilium adjacent to the SI joint. Mild leftward curvature of the thoracolumbar spine. IMPRESSION: Suspected infectious or inflammatory enterocolitis. Report Dictated By: Ralph Goldberg MD at 05/07/2018 5:48 AM ED Course/Re-evaluation Clinical Indication for ER IV: Hydration, IV Access ED Course Mild improvement after IV Zofran and fluids. Gave Toradol as well for pain minimal improvement. Abdominal 3 view obtained nonspecific but white count is elevated and pain is uncontrolled. CT scan was done show some thickening, possible enterocolitis or colitis. Discussed this with the patient. We'll start him on Flagyl and Cipro. We'll also give him Lortab and Zofran for pain and nausea Decision to Disposition Date: May 07, 2018 Decision to Disposition Time: 06:05 Depart Departure Latest Vital Signs Vital Signs Date Time Temp Pulse Resp B/P (MAP) Pulse Ox O2 Delivery O2 Flow Rate FiO2 05/07/18 05:19 84 99 05/07/18 05:15 2.0 05/07/18 05:00 117/70 (86) 05/07/18 03:39 98.5 20 Room Air Impression: Primary Impression: Colitis Condition: Improved Disposition: HOME OR SELF-CARE New Scripts Ondansetron 4 Mg Odt (ONDANSETRON 4 MG ODT) 4 Mg Tab.rapdis 4 MG PO Q6H PRN for NAUSEA/VOMITING, #10 TAB 0 Refills Prov: RUBEN LYNN MD 05/07/18 Hydrocodone Bit/Acetaminophen (HYDROCODON-ACETAMINOPHEN 5-325) 1 Each Tablet 1 EACH PO Q4H PRN for PAIN, #8 TAB 0 Refills Prov: RUBEN LYNN MD 05/07/18 Ciprofloxacin 500 Mg Tab (CIPROFLOXACIN 500 MG TAB) 500 Mg Tablet 500 MG PO BID, #20 TAB 0 Refills Prov: RUBEN LYNN MD 05/07/18 Metronidazole (METRONIDAZOLE) 500 Mg Tablet 500 MG PO TID, #30 TAB 0 Refills Prov: RUBEN LYNN MD 05/07/18 Patient Instructions: Infectious Colitis (ED) Additional Instructions: Your CT scan showed some thickening of some areas of the colon, likely representing a bacterial infection in the colon. Take the following two antibiotics for the next 10 days. Metronidazole 500mg three times a day. Ciprofloxacin 500mg twice a day. For pain, you can use Lortab 5/325, one every 4 hours as needed for severe pain. Otherwise, use Ibuprofen 200mg over the counter tablets, 4 tablets every 8 hours as needed. For nausea, take Zofran 4mg, one every 6 hours as needed. RUBEN LYNN MD May 07, 2018 03:44
[2018-05-07] MEDS ORDERED: ONDANSETRON 4 MG/2 ML VIAL ONE (03:46)
[2018-05-07] MEDS ORDERED: NS(*) 0.9% 1000 ML BAG 1,000 ML IV ONE (03:50)
[2018-05-07] MEDS ORDERED: KETOROLAC 30 MG/ML VIAL IVP ONE (04:10)
[2018-05-07 04:15] LABS: PLATELET COUNT, AUTOMATED 310 K/uL (150-450)
--- NOTE | 2018-05-07 04:47 | RADIOLOGY IMAGING REPORT ---
FACILITY: [facility] [place] PATIENT NAME: Donnell Chamberlain : 1995 MR: [id number] V: [id number] EXAM DATE: ORDERING PHYSICIAN: RUBEN LYNN TECHNOLOGIST: Location: [facility] Patient: Donnell Chamberlain : 1995 Visit/Account:[id number] Date of Sevice: 05/07/2018 ACUTE ABDOMEN SERIES 3 VIEW HISTORY: Vomiting and diarrhea since 0030 hours. Short of breath. COMPARISON: None. TECHNIQUE: PA upright view of the chest, AP supine and AP upright views of the abdomen. Chest: The lungs are clear. No pneumothorax or pleural effusion. The cardiac and mediastinal silhouet che are within normal limits. Bones and soft tissues are unremarkable. Abdomen: The distribution of bowel gas is normal, with bowel in all four quadrants as well as central ly. No free air. No dilated loops of bowel. No acute osseous abnormality. There is rightward curvatur e of the lumbar spine. IMPRESSION: 1. No acute cardiopulmonary process. 2. Unremarkable bowel gas pattern without obstruction. Report Dictated By: Christa Staples at 05/07/2018 4:42 AM Report E-Signed By: Christa Staples at 05/07/2018 4:44 AM WSN:[id number]
[2018-05-07] MEDS ORDERED: IOPAMIDOL 76% 75 ML INFUS BTL 75 ML ONE (05:46)
--- NOTE | 2018-05-07 05:59 | RADIOLOGY IMAGING REPORT ---
FACILITY: [facility] PATIENT NAME: Donnell Chamberlain : 1995 MR: [id number] V: [id number] EXAM DATE: ORDERING PHYSICIAN: RUBEN LYNN TECHNOLOGIST: Location: [facility] [place] Patient: Donnell Chamberlain : 1995 Visit/Account:[id number] Date of Sevice: 05/07/2018 COMPUTED TOMOGRAPHY ABDOMEN AND PELVIS WITH INTRAVENOUS CONTRAST DATE OF EXAM: 05/07/2018 4:51 AM INDICATION: Abdominal pain, nausea/vomiting. COMPARISON: Same-day abdomen series radiographs. TECHNIQUE: Contrast enhanced abdomen and pelvis CT performed during the injection of 75 ml of Isovue 370. Sagittal and coronal reconstructions were performed. One of the following dose optimization te chniques was utilized in the performance of this exam: Automated exposure control; adjustment of the mA and/or kV according to the patient's size; or use of an iterative reconstruction technique. Spec [facility] details can be referenced in the facility's radiology CT exam operational policy. FINDINGS: Lung bases: Clear. Liver and hepatic vasculature: Normal. Gallbladder and bile ducts: Normal. Spleen: Normal. Pancreas: Normal. Adrenals: Normal. Kidneys, ureters and bladder: Normal. Bladder is decompressed. Retroperitoneum and aorta: Aorta is normal. Retroaortic left renal vein. No adenopathy. GI tract, mesentery and peritoneum: Fluid-filled loops of small bowel in the proximal colon may have slightly increased wall enhancement and thickening. No evidence of obstruction. No pneumatosis, pn eumoperitoneum or significant free fluid. The appendix is nonacute. Prostate and seminal vesicles: Normal. Bones and soft tissues: No acute abnormality or suspicious lesion. Bone island in the left ilium ad jacent to the SI joint. Mild leftward curvature of the thoracolumbar spine. IMPRESSION: Suspected infectious or inflammatory enterocolitis. Report Dictated By: Ralph Goldberg MD at 05/07/2018 5:48 AM Report E-Signed By: Ralph Goldberg MD at 05/07/2018 5:56 AM WSN:[id number]
[2018-05-07 06:00] VITALS: BP 120/69
[2018-05-07] MEDS ORDERED: ACET/HYDROC 5/325MG TH ER ONLY 2 TAB/BOTTLE PO ONE (06:05)
[2018-05-07] MEDS ORDERED: ONDANSETRON 4 MG ODT TH SL ONE (06:05)
[2018-05-07] MEDS ORDERED: METRONIDAZOLE 500 MG TABLET PO ONE (06:05)
[2018-05-07] MEDS ORDERED: CIPROFLOXACIN 500 MG TAB PO ONE (06:05)
[2018-05-07] MEDS ORDERED: ONDA4TAB9 PO (06:07)
[2018-05-07] MEDS ORDERED: LOR5/325 PO (06:07)
[2018-05-07] MEDS ORDERED: CIPR-214 PO (06:07)
[2018-05-07] MEDS ORDERED: METR500T15 PO (06:07)
== END 2018-05-07 06:18 | disposition home or self-care (01) ==
LOC: ER 03:34
DX: K52.9 Noninfective gastroenteritis and colitis, unspecified (principal)
CPT/HCPCS: 74022; 74177; 81001; 82150; 83690; 85025; 96361; 96374; 96375; 99284; J1885; J2405; J7030; Q9967; S0119; 82040; 82247; 82310; 82374; 82435; 82565; 82947; 84075; 84132; 84155; 84295; 84450; 84460; 84520